=== PATIENT | male | born 1940 | race Caucasian/White ===

== ENCOUNTER 2020-11-13 11:17 | Outpatient (REF) | payer MEDICARE, SELFPAY ==
--- NOTE | ~2020-11-13 | XR_ITS ---
EXAMINATION: XR CHEST CLINICAL INFORMATION: Interstitial pulmonary disease COMPARISON: 09/03/2019 TECHNIQUE: 2 views of the chest were obtained. FINDINGS: Right chest wall CT compatible port terminating near the cavoatrial junction. No consolidation, edema, or effusion. No pneumothorax. The cardiomediastinal silhouette is normal in size, with a calcified aorta. No acute osseous abnormality. Mild degenerative changes of the spine. XR/XR chest 2V IMPRESSION: Clear lungs.
== END 2020-11-13 11:18 | disposition home or self-care (01) ==
LOC: HO.XRAY 11:17
PROVIDERS: PCP Internal Medicine; Visit Provider Internal Medicine
DX: J84.9 Interstitial pulmonary disease, unspecified (principal); R05 Cough
CPT/HCPCS: 71046; 99212

== ENCOUNTER 2021-10-04 13:46 | Emergency (ER) | payer MEDICARE, SELFPAY ==
--- NOTE | ~2021-10-04 | XR_ITS ---
EXAMINATION: XR CHEST CLINICAL INFORMATION: Bilateral lower extremity swelling COMPARISON: Previous chest x-ray most recent November 2020 TECHNIQUE: 2 views of the chest were obtained. FINDINGS: The cardiac and mediastinal contours are stable. There is a right sided port with tip projecting over the SVC. The lungs are clear. There is no pleural effusion or pneumothorax. There are degenerative changes of the spine. XR/XR chest 2V IMPRESSION: No evidence for acute disease in the chest.
--- NOTE | ~2021-10-04 | US_ITS ---
EXAMINATION: US VENOUS ULTRASOUND WITH DOPPLER LOWER EXTREMITY, RIGHT CLINICAL INFORMATION: Pain. Swelling. Coumadin. COMPARISON: None TECHNIQUE: Ultrasound of the deep veins is performed from the hip to the calf with compression sonography and color and pulse Doppler assessment. Spectral analysis with color-flow imaging is performed. FINDINGS: There is normal venous compression and respiratory variation and augmented flow. The visualized common femoral vein, superficial femoral vein, profunda femoral vein, popliteal vein, and the trifurcation region shows no evidence of deep venous thrombosis. There is no significant popliteal fossa cyst. If the patient's symptoms persist, followup ultrasound in 5 days 7 days might be of value to exclude proximal propagation from a non-visualized calf vein. US/US venous duplex LE RT IMPRESSION: No DVT demonstrated in the right lower extremity.
[2021-10-04 14:02] VITALS: BP 180/68; PULSE 49; RESP 18; TEMP 36.4; O2SAT 100; BMI 31.1
--- NOTE | 2021-10-04 14:05 | ECG_ITS ---
Test Reason : LEG PAIN Blood Pressure : / mmHG Vent. Rate : 058 BPM Atrial Rate : 000 BPM P-R Int : 000 ms QRS Dur : 088 ms QT Int : 456 ms P-R-T Axes : 000 082 049 degrees QTc Int : 447 ms Atrial fibrillation with slow ventricular response Possible Anterior infarct , age undetermined Abnormal ECG When compared with ECG of 04-OCT-2019 11:49, Borderline criteria for Anterior infarct are now Present Referred By: Generic ED Physician Electronically Signed By:MIGUELINA PÉREZ MD
[2021-10-04 14:36] LABS: MANUAL DIFF FLAG NO
[2021-10-04 14:37] LABS: Basophils Percent Auto 0.7 % (0-2); Eosinophils Absolute Auto 0.3 X10*3/uL (0.0-0.4); Eosinophils Percent Auto 4.4 % (0-4); Hematocrit 31.7 % (42.0-52.0); Hemoglobin 10.2 g/dl (14.0-18.0); Imm Gran Abs Auto 0.01 X10*3/uL (0.00-0.03); Imm Gran Pct Auto 0.2 % (0.0-0.4); Lymphocytes Absolute Auto 1.3 X10*3/uL (1.2-4.9); Lymphocytes Percent Auto 23.2 % (20-40); Mean Corpuscular HGB Conc 32.2 g/dl (31.0-36.0); Mean Corpuscular Hemoglobin 29.6 pg (27.0-33.0); Mean Corpuscular Volume 91.9 fL (80.0-98.0); Monocytes Absolute Auto 0.6 X10*3/uL (0.1-1.2); Monocytes Percent Auto 9.7 % (2-11); Neutrophils Absolute Auto 3.5 x10*3/uL (2.0-8.3); Neutrophils Percent Auto 61.8 % (45-73); Platelet Count 124 X10*3/uL (160-400); Red Blood Count 3.45 X10*6/uL (4.60-5.80); White Blood Count 5.7 X10*3/uL (4.8-10.8)
[2021-10-04 14:54] LABS: Alanine Aminotransferase 13 U/L (0-40); Albumin Level 3.9 g/dL (3.5-5.0); Alkaline Phosphatase 120 U/L (39-117); Anion Gap 11 (12-20); Aspartate Amino Transferase 22 U/L (5-37); Bilirubin Total 1.1 mg/dL (0.0-1.0); Blood Urea Nitrogen 22 mg/dL (9-16); Calcium 8.9 mg/dL (8.4-10.2); Carbon Dioxide 24 mmol/L (22-29); Chloride 106 mmol/L (96-108); Estimated Glomerular Filt Rate 35; Glucose Random 91 mg/dL (60-115); Potassium 4.1 mmol/L (3.3-5.1); Sodium 137 mmol/L (135-145); Total Protein 6.8 g/dL (6.5-8.0)
[2021-10-04 14:55] LABS: COVID-19 Test Negative (Negative)
[2021-10-04 14:58] LABS: B Type Natriuretic Peptide 245 pg/mL (<100)
--- NOTE | 2021-10-04 17:17 | ED_ITS ---
HPI - Extremity Problem General Chief complaint: Extremity Injury, Upper Stated complaint: R foot leg swollen Time Seen by Provider: 10/04/21 17:04 Source: patient Mode of arrival: ambulatory Limitations: no limitations History of Present Illness HPI Narrative: 80-year-old male who presents emergency department for evaluation right ankle pain, swelling and redness. The patient states that he noticed pain redness swelling over his right ankle on Friday ( 4 days prior to evaluation). He states that he could not see a doctor since the next day on Friday he was getting a cataract surgery. He states that the redness, swelling and pain is increased. He states that the pain is a constant, sharp pain which is worse with movement and is 8/10 at its worst. The patient did not take any medications for the pain at home. He states that the swelling has spread from his ankle to just below his kneecap. He denied fever, chills, chest pain, shortness of breath, dyspnea on exertion, fatigue, nausea, vomiting or diarrhea. Patient does have a history of gout usually in the big toe of his left foot. He states that he was treated in the past with colchicine. The patient was seen at the [facility] walk-in care today and referred to the emergency department for evaluation of swelling of the right ankle joint question joint infection. Related Data Home Medications Medication Instructions Recorded Confirmed allopurinol 100 mg tablet 100 mg PO DAILY 11/13/20 atorvastatin 80 mg tablet 80 mg PO DAILY 11/13/20 clopidogrel 75 mg tablet 75 mg PO DAILY 11/13/20 clopidogrel 75 mg tablet 75 mg PO DAILY 11/13/20 (Plavix) colchicine 0.6 mg tablet 0.6 mg PO DAILY PRN 11/13/20 folic acid 1 mg tablet 1 mg PO DAILY 11/13/20 furosemide 40 mg tablet 40 mg PO DAILY tab 11/13/20 hydroxyzine HCl 25 mg tablet 25 mg PO TID PRN 11/13/20 isosorbide mononitrate 30 mg mg PO 11/13/20 tablet,extended release 24 hr metoprolol tartrate 100 mg 100 mg PO BID 11/13/20 tablet multivitamin (Daily 1 tab PO DAILY 11/13/20 Multi-Vitamin) niacin 500 mg tablet 500 mg PO DAILY 11/13/20 nitroglycerin 0.4 mg 0.4 mg SUBLINGUAL Q5M PRN 11/13/20 sublingual tablet potassium chloride 20 mEq 20 meq PO DAILY 11/13/20 tablet,extended release prednisone 20 mg tablet 20 mg PO DAILY 11/13/20 warfarin 5 mg tablet 5 mg PO DAILY 11/13/20 tramadol 50 mg tablet mg PO 10/04/21 Previous Rx's Medication Instructions Recorded doxycycline hyclate 100 mg tablet 100 mg PO BID 10 Days #20 tab 11/13/20 cephalexin 500 mg capsule 500 mg PO QID 7 Days #28 cap 10/04/21 colchicine 0.6 mg tablet (Colcrys) 0.6 mg PO ONCE #6 tab 10/04/21 prednisone 20 mg tablet 40 mg PO DAILY 7 Days #14 tab 10/04/21 Allergies Allergy/AdvReac Type Severity Reaction Status Date / Time Penicillins Allergy Mild UNKNOWN Verified 10/04/21 14:02 Review of Systems Verdana 4l Review of Systems: Yes all other systems are reviewed and Verdana 4d are negative [facility] Past Medical History [facility] Narrative: Past medical history: Gout, atrial fibrillation on warfarin, interstitial lung disease, 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 Social history: The patient is a former smoker and stop smoking in 1981. He smoked for 30 years. Denies alcohol use. he denies drug use. States he is and lives at home with his . Medical History Cough Interstitial lung disease Social History Social History Advance Directives: Yes Advance Directives Information Provided: No Advance Directives on File: No Physical Exam Verdana 4l Vital Signs: Verdana 4d Verdana 4d Vital Signs: Verdana 4d Verdana 4Bd Last Vital Signs Verdana 4d T[employer] Professional New 4d Tile Professional New 4d Temp 97.5 F 10/04/21 14:02 T[employer] Professional New 4d Pulse 49 L 10/04/21 14:02 [employer] Professional New 4d Resp 18 10/04/21 14:02 BP 180/68 H 10/04/21 14:02 Pulse Ox 100 10/04/21 14:02 BMI result Body Mass Index 31.1 Const: General: cooperative and no acute distress Orientation/consciousness: oriented to person and oriented to place Limitations: no limitations HENMT: Head: Yes normal to inspection, Yes normocephalic and Yes atraumatic Ears: external ears normal General nose exam: Normal external nose present Face and sinus: Yes normal facial exam Mouth: Normal oral and palatal mucosa present Throat: Yes posterior oropharynx normal Eyes: General: appearance normal, both eyes and all related structures Pupils: E qual, round and reactive pupils present Neck: Neck: Yes normal visual inspection, Yes no lymphadenopathy, Yes trachea midline and Yes supple Chest: Chest palpation & inspection: normal inspection of the chest and normal palpation of entire chest wall Resp: Effort & Inspection: normal respiratory effort and able to speak in complete sentences Auscultation: clear to auscultation bilaterally Cardio: Rate: regular rate Rhythm: abnormal rhythm irregularly irregular Heart sounds: S1 normal heart sound present, S2 normal heart sound present and no murmurs GI: Inspection: Yes normal to inspection Palpation (GI): Soft to palpation, nontender and no guarding Auscultation: normal bowel sounds : General: Yes no CVA tenderness Back/Spine/Pelvis: Back: no CVA tenderness Skin: General skin exam: no rashes or lesions noted Neuro: General: oriented to person and oriented to place Cranial nerves: Yes CN's II-XII intact bilaterally and Yes Equal, round and reactive pupils present Cognition (Neuro): normal cognition Motor exam (neuro): 5/5 motor strength present throughout Extrem: Other: The patient has localized erythema And ecchymosis to the right lateral malleolus and the lateral aspect of the foot with increased warmth over this area of erythema, patient has tenderness with palpation of this area. The patient has 1+ edema of his right foot to just below the knee with increased size of the right lower leg compared to the left. He does have trace pitting in the left lower extremity. Psych: Appearance: grossly normal Speech and movement: Normal speech and movement present Affect: normal affect Attitude: cooperative Thought process: Normal thought process present Thought content: Normal thought content present Course Course Course Narrative: 80-year-old male who presents emergency department for evaluation of 4 days of right ankle pain, erythema, increased warmth and swelling. Patient had no systemic symptoms. The patient does have asymmetric pitting edema with the right lower extremity being greater than left. Differential includes but is not limited to cellulitis, gout, DVT, joint infection. 1733:Patient's laboratory evaluation revealed a normal WBC of 5700, he is anemic with an H&H of 10.2 and 31.7, platelet count was low 124,000. Patient's INR is subtherapeutic at 1.4. BUN and creatinine are elevated 22 and 1.87. COVID-19 test was negative. ProBNP was elevated 245. high sensitive troponin was below detectable limits. Chest x-ray revealed no evidence of congestive heart failure. Doppler ultrasound of the right lower extremity was ordered to rule out DVT. 1920: Doppler ultrasound of the patient's right lower extremity was negative for a DVT. I did discuss this finding with the patient. The patient will be started on Keflex 500 mg 4 times a day for 7 days for cellulitis. He will also be started on Colcrys S mg tablet, 2 pills once then 1 pill repeated 1 hour, repeat in 3 days. The patient and daughter concerned about the cost of Colcrys and I told him if they cannot afford this medication then he can take prednisone 40 mg once a day for 7 days. I did tell the patient that his INR was 1.4 knee should get this in 3-4 days by his Coumadin clinic. I also told him that if his symptoms got worse then he may need a repeat ultrasound in 4-7 days And he should return to emergency department for re-evaluation. MDM - Extremity (Nontraumatic) Lab Data Result diagrams: 10/04/21 14:30 10/04/21 14:30 Labs: Lab Results 10/04/21 10/04/21 10/04/21 Range/Units 14:30 14:30 14:30 WBC 5.7 (4.8-10.8) X10*3/uL RBC 3.45 L (4.60-5.80) X10*6/uL Hgb 10.2 L (14.0-18.0) g/dl Hct 31.7 L (42.0-52.0) % MCV 91.9 (80.0-98.0) fL MCH 29.6 (27.0-33.0) pg MCHC 32.2 (31.0-36.0) g/dl RDW 17.0 H (11.0-16.0) % Plt Count 124 L (160-400) X10*3/uL MPV 9.0 L (9.4-12.4) fL Immature Gran % (Auto) 0.2 (0.0-0.4) % Neut % (Auto) 61.8 (45-73) % Lymph % (Auto) 23.2 (20-40) % [place] % (Auto) 9.7 (2-11) % Eos % (Auto) 4.4 H (0-4) % Baso % (Auto) 0.7 (0-2) % Lymph # (Auto) 1.3 (1.2-4.9) X10*3/uL [place] # (Auto) 0.6 (0.1-1.2) X10*3/uL Eos # (Auto) 0.3 (0.0-0.4) X10*3/uL Baso # (Auto) 0.0 (0.0-0.2) X10*3/uL Abs Immat Gran (auto) 0.01 (0.00-0.03) X10*3/uL Absolute Neuts (auto) 3.5 (2.0-8.3) x10*3/uL Absolute Nucleated RBC 0.000 (0.0-0.012) X10*3/uL Nucleated RBC % (auto) 0.0 (0.0-0.2) /100WBC Sodium 137 (135-145) mmol/L Potassium 4.1 (3.3-5.1) mmol/L Chloride 106 (96-108) mmol/L Carbon Dioxide 24 (22-29) mmol/L Anion Gap 11 L (12-20) BUN 22 H (9-16) mg/dL Creatinine 1.87 H (0.5-1.4) mg/dL Estim Creat Clear Calc 31.0 Estimated GFR 35 Random Glucose 91 (60-115) mg/dL Calcium 8.9 (8.4-10.2) mg/dL Total Bilirubin 1.1 H (0.0-1.0) mg/dL AST 22 (5-37) U/L ALT 13 (0-40) U/L Alkaline Phosphatase 120 H (39-117) U/L Troponin I High Sens 10.0 (<3.5-35.0) ng/L B-Natriuretic Peptide 245 H (<100) pg/mL Total Protein 6.8 (6.5-8.0) g/dL Albumin 3.9 (3.5-5.0) g/dL COVID-19 ([facility]) (Negative) COVID-19 Clin Com 10/04/21 Range/Units 14:30 WBC (4.8-10.8) X10*3/uL RBC (4.60-5.80) X10*6/uL Hgb (14.0-18.0) g/dl Hct (42.0-52.0) % MCV (80.0-98.0) fL MCH (27.0-33.0) pg MCHC (31.0-36.0) g/dl RDW (11.0-16.0) % Plt Count (160-400) X10*3/uL MPV (9.4-12.4) fL Immature Gran % (Auto) (0.0-0.4) % Neut % (Auto) (45-73) % Lymph % (Auto) (20-40) % [place] % (Auto) (2-11) % Eos % (Auto) (0-4) % Baso % (Auto) (0-2) % Lymph # (Auto) (1.2-4.9) X10*3/uL [place] # (Auto) (0.1-1.2) X10*3/uL Eos # (Auto) (0.0-0.4) X10*3/uL Baso # (Auto) (0.0-0.2) X10*3/uL Abs Immat Gran (auto) (0.00-0.03) X10*3/uL Absolute Neuts (auto) (2.0-8.3) x10*3/uL Absolute Nucleated RBC (0.0-0.012) X10*3/uL Nucleated RBC % (auto) (0.0-0.2) /100WBC Sodium (135-145) mmol/L Potassium (3.3-5.1) mmol/L Chloride (96-108) mmol/L Carbon Dioxide (22-29) mmol/L Anion Gap (12-20) BUN (9-16) mg/dL Creatinine (0.5-1.4) mg/dL Estim Creat Clear Calc Estimated GFR Random Glucose (60-115) mg/dL Calcium (8.4-10.2) mg/dL Total Bilirubin (0.0-1.0) mg/dL AST (5-37) U/L ALT (0-40) U/L Alkaline Phosphatase (39-117) U/L Troponin I High Sens (<3.5-35.0) ng/L B-Natriuretic Peptide (<100) pg/mL Total Protein (6.5-8.0) g/dL Albumin (3.5-5.0) g/dL COVID-19 ([facility]) Negative (Negative) COVID-19 Clin Com See Note Discharge Plan Discharge Clinical Impression: Cellulitis, Gout, Edema, Subtherapeutic international normalized ratio (INR) Patient Disposition: Home, Self-Care Instructions: Cellulitis (ED), Gout (ED) Additional Instructions: Your INR was subtherapeutic at 1.4 (you should be between 2 and 3) You will need to follow-up on Friday to get a repeat INR from your Coumadin clinic. The Doppler ultrasound of your right leg did not reveal a blood clot. Sometimes, the 1st ultrasound can miss a small blood clot. Therefore if your leg is getting more swollen then you may need a repeat ultrasound in 4-7 days to rule out a blood clot. At this time I suspect that you have gout (inflammation of your joint caused by crystals) verses an infection of your skin (cellulitis). It is sometimes hard to tell the difference between these 2 conditions therefore Injury to your her both infection and inflammation. Take Colcrys 0.6 mg pills, 2 pills then take 1 pill 1 hour later. This medication will last for 3 days. If you still have gout in 3 days you can repeat this dose. If you cannot afford the Colcrys then take prednisone 20 mg pills, 2 pills (40 mg) once a day for 7 days. Take Keflex (cephalexin) 500 mg pills 4 times a day for 7 days. This is an antibiotic and should treat the skin infection. Keep your leg elevated to help the blood flow, out of your leg and reduce the swelling in her leg. Follow-up with your doctor in 2 days. Please return to the emergency department if your symptoms get worse or if you develop any symptoms that are concerning to you. Prescriptions: New cephalexin 500 mg capsule 500 mg PO QID 7 Days Qty: 28 0RF colchicine [Colcrys] 0.6 mg tablet 0.6 mg PO ONCE Qty: 6 0RF Rx Instructions: 1.2 mg orally, then 1 hour later take 0.6 mg orally, may repeat in 3 days prednisone 20 mg tablet 40 mg PO DAILY 7 Days Qty: 14 0RF No Action tramadol 50 mg tablet PO 0RF folic acid 1 mg tablet 1 mg PO DAILY 0RF allopurinol 100 mg tablet 100 mg PO DAILY 0RF atorvastatin 80 mg tablet 80 mg PO DAILY 0RF potassium chloride 20 mEq tablet extended release 20 meq PO DAILY 0RF isosorbide mononitrate 30 mg tablet extended release 24 hr PO 0RF warfarin 5 mg tablet 5 mg PO DAILY 0RF clopidogrel 75 mg tablet 75 mg PO DAILY 0RF furosemide 40 mg tablet 40 mg PO DAILY 0RF metoprolol tartrate 100 mg tablet 100 mg PO BID 0RF hydroxyzine HCl 25 mg tablet 25 mg PO TID PRN (Reason: anxiety) 0RF clopidogrel [Plavix] 75 mg tablet 75 mg PO DAILY 0RF colchicine 0.6 mg tablet 0.6 mg PO DAILY PRN0RF Rx Instructions: one tablet 4 times daily for gout flare up niacin 500 mg tablet 500 mg PO DAILY 0RF nitroglycerin 0.4 mg tablet, sublingual 0.4 mg sublingual Q5M PRN0RF Rx Instructions: do not exceed 3 doses per episode multivitamin [Daily Multi-Vitamin] Tablet 1 tab PO DAILY 0RF prednisone 20 mg tablet 20 mg PO DAILY 0RF Rx Instructions: tpaer does 3 tabs po for 3 days and 2 tabs for 3 days and 1 tab for 3 days doxycycline hyclate 100 mg tablet 100 mg PO BID 10 Days Qty: 20 0RF
== END 2021-10-04 19:47 | disposition home or self-care (01) ==
PROVIDERS: Emergency Provider Emergency Medicine Emergency Medical Services; PCP Internal Medicine
DX: L03.115 Cellulitis of right lower limb (principal); M10.9 Gout, unspecified; R60.0 Localized edema; R79.1 Abnormal coagulation profile; Z20.822 Contact with and (suspected) exposure to COVID-19; M25.571 Pain in right ankle and joints of right foot; I48.91 Unspecified atrial fibrillation; Z79.01 Long term (current) use of anticoagulants
CPT/HCPCS: 71046; 80053; 83880; 84484; 85025; 87635; 93005; 93971; 99283; 99284

== ENCOUNTER 2022-01-01 15:26 | Outpatient (REF) | payer MEDICARE, SELFPAY ==
--- NOTE | ~2022-01-01 | XR_ITS ---
EXAMINATION: XR CHEST CLINICAL INFORMATION: Bronchitis. COMPARISON: Chest radiograph dated from 10/04/2021. TECHNIQUE: 2 views of the chest were obtained. FINDINGS: Stable cardiomediastinal silhouette. Right-sided chest port terminates at the level of the cavoatrial junction. Mildly increased interstitial thickening without discrete focal consolidation, pleural effusion or pneumothorax. No acute osseous abnormalities. XR/XR chest 2V IMPRESSION: Mildly increased interstitial thickening which is nonspecific and could be associated with bronchitis, reactive airways disease or atypical infections.
== END 2022-01-01 15:27 | disposition home or self-care (01) ==
LOC: HO.XRAY 15:26
PROVIDERS: PCP Internal Medicine; Visit Provider Internal Medicine
DX: J84.9 Interstitial pulmonary disease, unspecified (principal); J40 Bronchitis, not specified as acute or chronic; R05.9 Cough, unspecified
CPT/HCPCS: 71046; 99212

== ENCOUNTER → 2022-01-14 15:46 | Outpatient (BNVA) | payer MEDICARE, SELFPAY | PROVIDERS: PCP Internal Medicine; Visit Provider Internal Medicine | DX: J84.9 Interstitial pulmonary disease, unspecified (principal); J40 Bronchitis, not specified as acute or chronic; R05.9 Cough, unspecified | CPT/HCPCS: 99212 ==

== ENCOUNTER → 2022-02-12 15:55 | Outpatient (BNVA) | payer MEDICARE, SELFPAY | PROVIDERS: PCP Internal Medicine; Visit Provider Internal Medicine | DX: J84.9 Interstitial pulmonary disease, unspecified (principal); J42 Unspecified chronic bronchitis | CPT/HCPCS: 99212 ==

== ENCOUNTER → 2022-05-29 13:21 | Outpatient (BNVA) | payer MEDICARE, SELFPAY | PROVIDERS: PCP Internal Medicine; Visit Provider Internal Medicine | DX: J84.9 Interstitial pulmonary disease, unspecified (principal); J40 Bronchitis, not specified as acute or chronic; R05.9 Cough, unspecified | CPT/HCPCS: 99212 ==

== ENCOUNTER → 2022-08-20 13:32 | Outpatient (BNVA) | payer MEDICARE, SELFPAY | PROVIDERS: PCP Internal Medicine; Visit Provider Internal Medicine | DX: J84.9 Interstitial pulmonary disease, unspecified (principal); J40 Bronchitis, not specified as acute or chronic | CPT/HCPCS: 99212 ==

== ENCOUNTER 2022-08-20 14:02 | Outpatient (REF) | payer MEDICARE, SELFPAY ==
--- NOTE | ~2022-08-20 | XR_ITS ---
EXAMINATION: XR CHEST CLINICAL INFORMATION: Interstitial pulmonary disease. COMPARISON: 01/01/2022 and 10/04/2021. TECHNIQUE: 2 views of the chest were obtained. FINDINGS: There is no evidence of acute parenchymal disease, pneumothorax, or pleural effusion. Heart normal size. No evidence of pulmonary edema. Coronary artery stents are present. Right internal jugular port catheter seen in place with the tip in the region of the superior right atrium. There are increased interstitial markings seen most prominent within the right upper and lower lobes with question of some bronchiectasis. There is no significant change from previous examinations. Prominent aortic calcification is seen. XR/XR chest 2V IMPRESSION: 1. No acute disease. 2. Stable interstitial prominence as described.
== END 2022-08-20 14:03 | disposition home or self-care (01) ==
LOC: HO.XRAY 14:02
PROVIDERS: PCP Internal Medicine; Visit Provider Internal Medicine
DX: J40 Bronchitis, not specified as acute or chronic (principal); J84.9 Interstitial pulmonary disease, unspecified; R05.9 Cough, unspecified
CPT/HCPCS: 71046

== ENCOUNTER → 2022-09-24 11:13 | Outpatient (BNVA) | payer MEDICARE, SELFPAY | PROVIDERS: PCP Internal Medicine; Visit Provider Internal Medicine | DX: J84.9 Interstitial pulmonary disease, unspecified (principal); J40 Bronchitis, not specified as acute or chronic; R05.9 Cough, unspecified | CPT/HCPCS: 99212 ==

== ENCOUNTER 2022-10-31 19:19 | Emergency (ER) | payer OTHER, SELFPAY ==
[2022-10-31 20:13] VITALS: BP 152/68; PULSE 69; RESP 16; TEMP 36.6; O2SAT 98; BMI 26.7
--- NOTE | 2022-10-31 20:13 | ED_ITS ---
HPI - Extremity Problem General Chief complaint: Wound/Laceration Stated complaint: bleeding right elbow skin tear on coumadin Related Data Home Medications Medication Instructions Recorded Confirmed allopurinol 100 mg tablet 100 mg PO DAILY 11/13/20 01/14/22 atorvastatin 80 mg tablet 80 mg PO DAILY 11/13/20 01/14/22 clopidogrel 75 mg tablet (Plavix) 75 mg PO DAILY 11/13/20 01/14/22 colchicine 0.6 mg tablet 0.6 mg PO DAILY PRN 11/13/20 01/14/22 folic acid 1 mg tablet 1 mg PO DAILY 11/13/20 01/14/22 furosemide 40 mg tablet 40 mg PO DAILY 11/13/20 01/14/22 hydroxyzine HCl 25 mg tablet 25 mg PO TID PRN anxiety 11/13/20 01/14/22 metoprolol tartrate 100 mg tablet 100 mg PO BID 11/13/20 01/14/22 multivitamin (Daily Multi-Vitamin 1 tab PO DAILY 11/13/20 01/14/22 tablet) niacin 500 mg tablet 500 mg PO DAILY 11/13/20 01/14/22 nitroglycerin 0.4 mg sublingual 0.4 mg sublingual Q5M PRN 11/13/20 01/14/22 tablet potassium chloride 20 mEq 20 meq PO DAILY 11/13/20 01/14/22 tablet,extended release warfarin 5 mg tablet 5 mg PO DAILY 11/13/20 01/14/22 isosorbide mononitrate 30 mg 30 mg PO DAILY 01/14/22 01/14/22 tablet,extended release 24 hr gabapentin 100 mg capsule 200 mg PO BID 02/12/22 Previous Rx's Medication Instructions Recorded ipratropium 0.5 mg-albuterol 3 mg 3 ml inhalation Q4-6H PRN wheezing 01/16/22 (2.5 mg base)/3 mL nebulization #90 mL soln doxycycline hyclate 100 mg tablet 100 mg PO BID Bronchitis 10 days 08/20/22 #20 tabs prednisone 20 mg tablet 20 mg PO BID 5 days #10 tabs 08/20/22 Allergies Allergy/AdvReac Type Severity Reaction Status Date / Time Penicillins Allergy Mild UNKNOWN Verified 10/31/22 20:22 Iodinated Contrast Media Allergy Unresponsiv Verified 10/31/22 20:22 [Contrast Dye] e [facility] Past Medical History Medical History Bronchitis Cough Interstitial lung disease Social History Social History Patient Tobacco Use Status: Former Tobacco user Years Smoked: 1988 Advance Directives: No Advance Directives Information Provided: Yes Physical Exam Vital Signs: Vital Signs: Last Vital Signs Temp 98 F 10/31/22 20:13 Pulse 69 10/31/22 20:13 Resp 16 10/31/22 20:13 BP 152/68 H 10/31/22 20:13 Pulse Ox 98 10/31/22 20:13 O2 Del Method 10/31/22 20:13 BMI result Body Mass Index 26.7 Course Course Course Narrative: This is an RME: Additional HPI, ROS, PE not included below will be deferred to primary provider. Patient is an 81-year-old male who presents emergency department for evaluation of bleeding to the elbow. Reports that patient sustained a skin tear to the right elbow approximately 3-4 months ago. 4 days ago, he struck the elbow again causing it to begin bleeding. reports that she has had to continuously change the dressings nightly. Today it has been changed 2-3 times due to saturation. He is on Coumadin due to AFib, reports INR 1 week ago of 5, medication was held for 2 days, then re-initiated, pending repeat INR. Plan: labs including INR, tear is superficial, not amenable to suture, clean dry dressing with pressure applied Medical Decision Making Lab Data 10/31/22 20:28 10/31/22 20:28 Labs: Lab Results 10/31/22 10/31/22 10/31/22 Range/Units 20:28 20:28 20:28 WBC 6.3 (4.8-10.8) X10*3/uL RBC 3.79 L (4.60-5.80) X10*6/uL Hgb 11.7 L (14.0-18.0) g/dl Hct 35.0 L (42.0-52.0) % MCV 92.3 (80.0-98.0) fL MCH 30.9 (27.0-33.0) pg MCHC 33.4 (31.0-36.0) g/dl RDW 14.8 (11.0-16.0) % Plt Count 151 L (160-400) X10*3/uL MPV 10.9 (9.4-12.4) fL Immature Gran % (Auto) 0.2 (0.0-0.4) % Neut % (Auto) 54.4 (45-73) % Lymph % (Auto) 30.7 (20-40) % [place] % (Auto) 9.2 (2-11) % Eos % (Auto) 4.9 H (0-4) % Baso % (Auto) 0.6 (0-2) % Lymph # (Auto) 1.9 (1.2-4.9) X10*3/uL [place] # (Auto) 0.6 (0.1-1.2) X10*3/uL Eos # (Auto) 0.3 (0.0-0.4) X10*3/uL Baso # (Auto) 0.0 (0.0-0.2) X10*3/uL Abs Immat Gran (auto) 0.01 (0.00-0.03) X10*3/uL Absolute Neuts (auto) 3.4 (2.0-8.3) x10*3/uL Absolute Nucleated RBC 0.000 (0.0-0.012) X10*3/uL Nucleated RBC % (auto) 0.0 (0.0-0.2) /100WBC PT 34.8 H (10.0-13.1) SEC INR 2.9 H (0.9-1.1) Sodium 141 (135-145) mmol/L Potassium 4.1 (3.3-5.1) mmol/L Chloride 107 (96-108) mmol/L Carbon Dioxide 23 (22-29) mmol/L Anion Gap 15 (12-20) BUN 23 H (9-16) mg/dL Creatinine 2.41 H (0.5-1.4) mg/dL Estim Creat Clear Calc 22.0 Estimated GFR 26 Random Glucose 112 (60-115) mg/dL Calcium 8.9 (8.4-10.2) mg/dL Total Bilirubin 1.9 H (0.0-1.0) mg/dL AST 30 (5-37) U/L ALT 17 (0-40) U/L Alkaline Phosphatase 116 (39-117) U/L Total Protein 6.6 (6.5-8.0) g/dL Albumin 4.0 (3.5-5.0) g/dL Discharge Plan Discharge Clinical Impression: Laceration Patient Disposition: Elopement Prescriptions: No Action ipratropium-albuterol 0.5 mg-3 mg(2.5 mg base)/3 mL solution for nebulization 3 ml inhalation Q4-6H PRN (Reason: wheezing) Qty: 90 3RF folic acid 1 mg tablet 1 mg PO DAILY allopurinol 100 mg tablet 100 mg PO DAILY atorvastatin 80 mg tablet 80 mg PO DAILY potassium chloride 20 mEq tablet extended release 20 meq PO DAILY warfarin 5 mg tablet 5 mg PO DAILY furosemide 40 mg tablet 40 mg PO DAILY metoprolol tartrate 100 mg tablet 100 mg PO BID hydroxyzine HCl 25 mg tablet 25 mg PO TID PRN (Reason: anxiety) clopidogrel [Plavix] 75 mg tablet 75 mg PO DAILY colchicine 0.6 mg tablet 0.6 mg PO DAILY PRN Rx Instructions: one tablet 4 times daily for gout flare up niacin 500 mg tablet 500 mg PO DAILY nitroglycerin 0.4 mg tablet, sublingual 0.4 mg sublingual Q5M PRN Rx Instructions: do not exceed 3 doses per episode multivitamin [Daily Multi-Vitamin] Tablet 1 tab PO DAILY isosorbide mononitrate 30 mg tablet extended release 24 hr 30 mg PO DAILY gabapentin 100 mg capsule 200 mg PO BID doxycycline hyclate 100 mg tablet 100 mg PO BID 10 Days Qty: 20 0RF prednisone 20 mg tablet 20 mg PO BID 5 Days Qty: 10 1RF Interventions: ED Discharge Assessment Last Done: 10/31/22 22:56 Discharge Date/Time: 10/31/22 22:57
[2022-10-31 20:34] LABS: MANUAL DIFF FLAG NO
[2022-10-31 20:35] LABS: Basophils Percent Auto 0.6 % (0-2); Eosinophils Absolute Auto 0.3 X10*3/uL (0.0-0.4); Eosinophils Percent Auto 4.9 % (0-4); Hemoglobin 11.7 g/dl (14.0-18.0); Imm Gran Abs Auto 0.01 X10*3/uL (0.00-0.03); Imm Gran Pct Auto 0.2 % (0.0-0.4); Lymphocytes Absolute Auto 1.9 X10*3/uL (1.2-4.9); Lymphocytes Percent Auto 30.7 % (20-40); Mean Corpuscular HGB Conc 33.4 g/dl (31.0-36.0); Mean Corpuscular Hemoglobin 30.9 pg (27.0-33.0); Mean Corpuscular Volume 92.3 fL (80.0-98.0); Mean Platelet Volume 10.9 fL (9.4-12.4); Monocytes Absolute Auto 0.6 X10*3/uL (0.1-1.2); Monocytes Percent Auto 9.2 % (2-11); Neutrophils Absolute Auto 3.4 x10*3/uL (2.0-8.3); Neutrophils Percent Auto 54.4 % (45-73); Platelet Count 151 X10*3/uL (160-400); Red Blood Count 3.79 X10*6/uL (4.60-5.80); Red Cell Distribution Width 14.8 % (11.0-16.0); White Blood Count 6.3 X10*3/uL (4.8-10.8)
[2022-10-31 20:41] LABS: INTERNATIONAL NORM RATIO 2.9 (0.9-1.1); Prothrombin Time 34.8 SEC (10.0-13.1)
[2022-10-31 20:51] LABS: Alanine Aminotransferase 17 U/L (0-40); Alkaline Phosphatase 116 U/L (39-117); Anion Gap 15 (12-20); Aspartate Amino Transferase 30 U/L (5-37); Bilirubin Total 1.9 mg/dL (0.0-1.0); Blood Urea Nitrogen 23 mg/dL (9-16); Calcium 8.9 mg/dL (8.4-10.2); Carbon Dioxide 23 mmol/L (22-29); Chloride 107 mmol/L (96-108); Estimated Glomerular Filt Rate 26; Glucose Random 112 mg/dL (60-115); Potassium 4.1 mmol/L (3.3-5.1); Sodium 141 mmol/L (135-145); Total Protein 6.6 g/dL (6.5-8.0)
--- NOTE | 2022-10-31 22:36 | PC.NURSE ---
Cleaned and dressed applied surgicel to stop the bleeding. Patient just awaiting a provider.
== END 2022-10-31 22:57 | disposition left against medical advice (07) ==
PROVIDERS: Nurse Practitioner Family; Emergency Provider Emergency Medicine Emergency Medical Services; PCP Internal Medicine
DX: S51.011D Laceration without foreign body of right elbow, subsequent encounter (principal); W22.8XXD Striking against or struck by other objects, subsequent encounter; Z87.891 Personal history of nicotine dependence; Z79.01 Long term (current) use of anticoagulants; Z79.899 Other long term (current) drug therapy
CPT/HCPCS: 36415; 80053; 85025; 85610; 99282; 99283

== ENCOUNTER → 2023-01-07 10:59 | Outpatient (BNVA) | payer OTHER, SELFPAY | PROVIDERS: PCP Internal Medicine; Visit Provider Internal Medicine | DX: J44.1 Chronic obstructive pulmonary disease with (acute) exacerbation (principal); J84.9 Interstitial pulmonary disease, unspecified; R05.9 Cough, unspecified; Z87.891 Personal history of nicotine dependence | CPT/HCPCS: 99212 ==

== ENCOUNTER 2024-02-03 16:08 | Outpatient (AMB) | payer OTHER, SELFPAY ==
[2024-02-03 16:14] VITALS: BP 112/64; PULSE 64; O2SAT 99; BMI 23.3
--- NOTE | 2024-02-03 16:14 | A.OFFVIS_ITS ---
Vital Signs 02/03/24 16:14 Height 5 ft 7 in Weight 148 lb 12.992 oz BMI 23.3 BP 112/64 Blood Pressure Location Lt brachial Position Sitting Pulse 64 Pulse Source Pulse Oximeter Pulse Oximetry (%) 99 Oxygen Delivery Method Room Air Intake Visit Reasons: COPD Intake Note: pt is here for follow up and states phelgm started to come out yesterday, good days and bad days, coughing, up all night with the cough. [employer] Required: No Allergies Penicillins Allergy (Mild, Verified 02/03/24 16:43) UNKNOWN Iodinated Contrast Media [Contrast Dye] Allergy (Verified 02/03/24 16:43) Unresponsive Medication List - Last Reconciled 02/03/24 by Cuauhtemoc Mayen MD allopurinol 100 mg PO DAILY atorvastatin 80 mg PO DAILY colchicine 0.6 mg PO DAILY PRN famotidine (Pepcid) 40 mg PO DAILY finasteride 5 mg PO DAILY folic acid 1 mg PO DAILY furosemide 40 mg PO DAILY guaifenesin ER (Mucinex) 600 mg PO BID hydroxyzine HCl 25 mg PO DAILY PRN ipratropium bromide 2.5 mL inhalation Q6H PRN 15 days isosorbide mononitrate ER 30 mg PO DAILY levalbuterol HCl 1.25 mg (3 mL) inhalation Q4-6H PRN 30 days metoprolol succinate ER 100 mg PO DAILY multivitamin (Daily Multi-Vitamin tablet) 1 tab PO DAILY niacin 500 mg PO DAILY potassium chloride ER 20 mEq PO DAILY thiamine HCl (vitamin B1) 50 mg PO DAILY Do you need a note to return to daycare/school/sports/work: No HPI HPI COPD: Details: Neftali , 83 years old, is brought in for an urgent visit because of persistent cough, feeling weak and tired. Last week he was seen at the urgent care clinic, and treated with a 5 days course of prednisone which he has completed. No antibiotics. He does have nebulizer at home and currently using Atrovent, solution as well as love albuterol solution Q 6 hours while awake. A few weeks ago he spent some days in [facility] because of general weakness and was treated for low-grade GI bleeding. Remains tired and mostly in the wheelchair. [facility] Medical History Acute exacerbation of chronic obstructive pulmonary disease (COPD) Bronchitis Interstitial lung disease Cough Social History Patient Tobacco Use Status: Former Tobacco user Years Smoked: 1988 Review of Systems Const All systems reviewed & are unremarkable except as noted in HPI and below Eyes Reports no additional complaints ENT Reports nasal congestion (Mild) Card Denies chest pain, Denies irregular heart rhythm and Denies leg edema Resp Reports as per HPI Reports no additional complaints Musc Reports muscle weakness (General) Skin/Breast Reports system reviewed and no additional complaints, except as documented Neuro Reports no additional complaints Psych Reports no additional complaints Physical Exam Vital Signs: Last Vital Signs Pulse 64 02/03/24 16:14 BP 112/64 02/03/24 16:14 Pulse Ox 99 02/03/24 16:14 Oxygen Delivery Method Room Air 02/03/24 16:14 BMI result Body Mass Index 23.3 Const Other: Acute sick-looking, moderately short of breath General: comfortable, no acute distress, alert and awake Orientation/consciousness: patient oriented x3 HEENT Head: Yes normal to inspection General nose exam: No nasal polyps present and No nasal discharge present Face and sinus: Yes sinuses nontender Mouth: oropharynx normal Throat: Yes posterior oropharynx normal Eyes General: appearance normal, both eyes and all related structures Neck Neck: Yes normal visual inspection, Yes no lymphadenopathy, Yes trachea midline and Yes no JVD Thyroid: Thyroid normal Chest Chest palpation & inspection: normal inspection of the chest, normal palpation of entire chest wall and no tenderness Resp Other: Percussion note resonant Breath sounds are heard on both sides equally, The breath sounds are distant . A few inspiratory crepitations heard over the left base . Cardio Palpation: normal PMI Rate: regular rate Rhythm: regular rhythm Heart sounds: no gallops and no murmurs GI Palpation (GI): Soft to palpation, nontender, No hepatosplenomegaly present and no masses Auscultation: normal bowel sounds Back/Spine/Pelvis Thoracic/Lumbar Spine: thoracic and lumbar spine normal to inspection and thoraco-lumbar ROM limited Skin General skin exam: no rashes or lesions noted Neuro General: patient oriented x3, No gait normal (Non ambulatory comes in wheelchair) and no focal motor deficits (But has muscular weakness in both lower extremities) Cranial nerves: Yes CN's II-XII intact bilaterally Extrem General: Yes normal to inspection, Yes no clubbing, cyanosis or edema and Yes no calf tenderness Psych Appearance: grossly normal Speech and movement: Normal speech and movement present Assessment & Plan Assessment & Plan (1) Bronchitis: Comment: He has had increased cough with expectoration, partially improved after the short course. of prednisone I think he still has some element of chronic bronchitis. Chest x-ray is ordered to make sure that he does not have any acute pneumonitis. Code(s): J40 - Bronchitis, not specified as acute or chronic Category: Medical Plan: Chest x-ray. Continue Mucinex 600 mg b.i.d.. Use the nebulized treatment with ipratropium and levalbuterol Q 6 hours while awake. (2) Interstitial lung disease: Comment: He has had mild ,chronic interstitial lung disease, resulting in mild intermittent cough. Will need to be monitored closely. Chest x-ray ordered to make sure that there is no increase in the interstitial lung disease. Code(s): J84.9 - Interstitial pulmonary disease, unspecified Category: Medical Plan: Chest x-ray to rule out pneumonia. (3) Cough: Comment: CHRONIC INTERMITTENT COUGH IS SECONDARY TO INTERSTITIAL LUNG DISEASE AND LOW- GRADE CHRONIC BRONCHITIS. Code(s): R05 - Cough Category: Medical Plan: CONTINUE TO USE THE NEBULIZER WITH IPRATROPIUM AND LEVALBUTEROL Q.6 HOURS WHILE AWAKE. MUCINEX 600 MG B.I.D.. HAS COUGH MEDICINE WITH CODEINE AT HOME, ADVISED TO USE 1 OR 2 TSP ONLY AT NIGHTTIME. Orders: Orders XR chest 2V Today J40 - Bronchitis, not specified as acute or chronic, J84.9 - Interstitial pulmonary disease, unspecified, R05 - Cough Coding Level of Care Code Est Pt Level 3 (33969) Diagnoses Bronchitis J40 Interstitial lung disease J84.9 Cough R05
== END 2024-02-03 16:30 | disposition home or self-care (01) ==
PROVIDERS: PCP Internal Medicine; Visit Provider Internal Medicine
DX: J40 Bronchitis, not specified as acute or chronic (principal); J84.9 Interstitial pulmonary disease, unspecified; R05.9 Cough, unspecified
CPT/HCPCS: 99213

== ENCOUNTER 2024-02-03 16:08 | Outpatient (REF) | payer OTHER, SELFPAY ==
--- NOTE | ~2024-02-03 | XR_ITS ---
EXAMINATION: XR CHEST CLINICAL INFORMATION: Bronchitis not specified COMPARISON: 08/20/2022 TECHNIQUE: 2 views of the chest were obtained. FINDINGS: Heart size normal. Pulmonary vessels are of normal caliber. Chronic areas of probable bronchiectatic changes are stable. Lungs clear. Right-sided port stable in position. No pleural effusions. There is moderate kyphosis of the thoracic spine. No fracture. XR/XR chest 2V IMPRESSION: Stable interstitial prominence. No acute findings. No active disease.
== END 2024-02-03 16:09 | disposition home or self-care (01) ==
LOC: HO.XRAY 16:08
PROVIDERS: PCP Internal Medicine; Visit Provider Internal Medicine
DX: J40 Bronchitis, not specified as acute or chronic (principal); J84.9 Interstitial pulmonary disease, unspecified; R05.9 Cough, unspecified
CPT/HCPCS: 71046; 99212